=== PATIENT | male | born 1940 | race African-American/Black ===

== ENCOUNTER 2023-09-03 10:21 | Outpatient (CLI) | payer OTHER | END 2023-09-03 10:22 | disposition home or self-care (01) | LOC: NAV CT 10:21 | PROVIDERS: ATTEND Nurse Practitioner Family | DX: R76.11 Nonspecific reaction to tuberculin skin test without active tuberculosis (principal); R91.8 Other nonspecific abnormal finding of lung field; J98.4 Other disorders of lung; J43.9 Emphysema, unspecified | CPT/HCPCS: 71250 ==